=== PATIENT | male | born 1990 | race Hispanic/Latino ===

== ENCOUNTER 2020-10-27 02:22 | Emergency (ER) | payer OTHER ==
[2020-10-27] MEDS ORDERED: SODIUM CHLORIDE 0.9% 1000 ML 1,000 ML IV ONE (02:34)
--- NOTE | 2020-10-27 02:35 | Emergency Department Report ---
ED Syncope HPI - General Chief Complaint: Syncope Stated Complaint: SYNCOPE Time Seen by Provider: 10/27/20 02:32 Source: patient, EMS Exam Limitations: no limitations - History of Present Illness Initial Comments: Patient is a 30-year-old male that presents emergency room with complaints of syncopal episode. Patient had one single episode. Patient is a local data operations leader. Patient states he was on a call to a patient's house with a house was extremely hot. Patient states while he was in there he became lightheaded and had a syncopal episode. Patient states he had a brief loss of consciousness. Patient denies trauma. Patient states when he started feeling lightheaded and woozy he sat down and passed out while sitting on the floor. Patient denies trauma. Patient denies any chest pain or shortness of breath before or after the event. Patient denies seizure-like activity. Patient denies fever and chills. Patient had a Covid test 4 days ago and it was negative. Patient denies any respiratory symptoms. Patient denies recent travel. Patient denies recent international travel. Patient denies fever and chills. Patient denies cough. Patient denies diarrhe a. Timing/Prior Episodes: no prior history, single episode today Precipitating Factors: Positive: lightheadedness Context: standing, activity Loss of Consciousness: brief (seconds) Current Symptoms: back to normal - Related Data Allergies/Adverse Reactions: Allergies No Known Allergies Allergy (Unverified 10/27/20 03:05) ED Review of Systems ROS: Stated complaint: SYNCOPE Other details as noted in HPI Constitutional: denies: chills, fever Eyes: denies: eye pain, eye discharge, vision change ENT: denies: ear pain, throat pain Respiratory: denies: cough, shortness of breath, wheezing Cardiovascular: denies: chest pain, palpitations Endocrine: no symptoms reported Gastrointestinal: denies: abdominal pain, nausea, diarrhea Genitourinary: denies: urgency, dysuria Musculoskeletal: denies: back pain, joint swelling, arthralgia Skin: denies: rash, lesions Neurological: denies: headache, weakness, paresthesias Psychiatric: denies: anxiety, depression Hematological/Lymphatic: denies: easy bleeding, easy bruising ED Past Medical Hx - Past Medical History Previous Medical History?: Yes Hx Hypertension: Yes - Surgical History Past Surgical History?: No - Family History Family history: no significant - Social History Smoking Status: Never Smoker Substance Use Type: None ED Physical Exam - General Limitations: No Limitations General appearance: alert, in no apparent distress - Head Head exam: Present: atraumatic, normocephalic - Eye Eye exam: Present: normal appearance - ENT ENT exam: Present: mucous membranes dry - Neck Neck exam: Present: normal inspection - Respiratory Respiratory exam: Present: normal lung sounds bilaterally. Absent: respiratory distress - Cardiovascular Cardiovascular Exam: Present: regular rate, normal rhythm. Absent: systolic murmur, diastolic murmur, rubs, gallop - GI/Abdominal GI/Abdominal exam: Present: soft, normal bowel sounds - Rectal Rectal exam: Present: deferred - Extremities Exam Extremities exam: Present: normal inspection - Back Exam Back exam: Present: normal inspection - Neurological Exam Neurological exam: Present: alert, oriented X3 - Psychiatric Psychiatric exam: Present: normal affect, normal mood - Skin Skin exam: Present: warm, dry, intact, normal color. Absent: rash ED Course Vital Signs 10/27/20 02:26 Temperature 97.8 F Pulse Rate 92 H Respiratory 19 Rate Blood Pressure 125/64 [left arm] O2 Sat by Pulse 97 Oximetry - Reevaluation(s) Reevaluation #1: Patient's fluids are running. Patient states he is feeling much better. Patient denies dizziness and lightheadedness. Patient ambulatory in ER. I discussed all results and clinical findings with patient. I discussed plan of care with patient. Patient agrees with plan of care. Patient is stable for discharge. Patient will be discharged home. Patient given discharge instructions. Patient voiced understanding of discharge instructions. 10/27/20 03:26 ED Medical Decision Making - Lab Data Result diagrams: 10/27/20 02:44 10/27/20 02:44 - Medical Decision Making Patient is a 30-year-old male who presents emergency room with syncopal episode x1. Patient did not have any trauma. Patient symptom resolves soon after the event. Patient had labs done which was unremarkable except for dehydration. Patient's BUN was elevated at 25. Patient given fluids in the ER. Patient responded well to treatment. Patient given fluids because his syncope is secondary to heat exhaustion and heat syncope and dehydration. Patient was asymptomatic the entire time in the ER. Patient tolerated ambulation in the ER. Patient stable for discharge. Patient discharged home. - Differential Diagnosis Dehydration, heat exhaustion, syncope, heat syncope Critical care attestation.: If time is entered above; I have spent that time in minutes in the direct care of this critically ill patient, excluding procedure time. ED Disposition Clinical Impression: Dehydration Heat syncope Qualifiers: Encounter type: initial encounter Qualified Code(s): T67.1XXA - Heat syncope, initial encounter Heat exhaustion Qualifiers: Encounter type: initial encounter Qualified Code(s): T67.5XXA - Heat exhaustion, unspecified, initial encounter Disposition: DC- TO HOME OR SELFCARE Is pt being admited?: No Does the pt Need Aspirin: No Condition: Stable Instructions: Heat Exhaustion, Dehydration, Adult, [id number], Rehydration, Adult, Syncope (ED) Additional Instructions: Patient to follow-up with primary care in 2 to 3 days. Patient to rest. Patient to increase water. Patient to take Tylenol or ibuprofen as needed for pain. Patient to take meds as directed. Patient to return to the ER if condi tion worsens, changes or new symptoms arise. Referrals: VERONICA RICHEY MD [Primary Care Provider] - 2-3 Days Time of Disposition: 03:28
[2020-10-27 02:36] VITALS: BP 125/64
[2020-10-27 03:00] LABS: Basophils % (Auto) 0.5 % (0.0-1.8); Eosinophils # (Auto) 0.2 K/mm3 (0.0-0.4); Eosinophils % (Auto) 2.1 % (0.0-4.3); Hematocrit 44.2 % (35.5-45.6); Hemoglobin 15.3 gm/dl (11.8-15.2); Lymphocytes # (Auto) 3.5 K/mm3 (1.2-5.4); Lymphocytes % (Auto) 42.4 % (13.4-35.0); Mean Corpuscular HGB Conc 35 % (32-34); Mean Corpuscular Volume 87 fl (84-94); Monocytes # (Auto) 0.8 K/mm3 (0.0-0.8); Monocytes % (Auto) 9.3 % (0.0-7.3); Platelet Count 227 K/mm3 (140-440); Red Blood Count 5.07 M/mm3 (3.65-5.03); Red Cell Distribution Width 13.6 % (13.2-15.2)
[2020-10-27 03:17] LABS: Alanine Aminotransferase 85 units/L (7-56); Albumin 4.6 g/dL (3.9-5); BUN/Creatinine Ratio 31; Blood Urea Nitrogen 25 mg/dL (9-20); Calcium 9.7 mg/dL (8.4-10.2); Hemolysis Index 3
== END 2020-10-27 04:00 | disposition home or self-care (01) ==
LOC: ED 02:22
DX: T67.1XXA Heat syncope, initial encounter (principal); T67.5XXA Heat exhaustion, unspecified, initial encounter; E86.0 Dehydration; I10 Essential (primary) hypertension
CPT/HCPCS: 36415; 80053; 85025; 96360; 99283; J7030